=== PATIENT | male | born 1960 | race Caucasian/White ===

== ENCOUNTER → 2023-01-01 | Outpatient (CLI) | payer OTHER ==
--- NOTE | 2023-01-04 07:13 | CTL ---
EXAMINATION TYPE: CT Low Dose Lung DATE OF EXAM: 01/01/2023 7:18 PM CLINICAL INDICATION:Male, 62 years old with history of Z12.2,F17.210,Z87.891; Current every day smoke r, 1 pack a day x 47 years. , history of tobacco use. COMPARISON: None. TECHNIQUE: Multiple axial non-contrast scans were obtained from approximately the lung apices through the upper abdomen. Coronal and sagittal reformatted images were obtained. Low dose technique was uti lized. CT DLP: 76.3 mGycm, Automated exposure control for dose reduction was used. CT Contrast: Contrast used: None Oral contrast used: None FINDINGS: ======== Lack of intravenous contrast and low dose technique limits the evaluation of the vascular and soft ti ssue structures. LUNGS: No evidence of pulmonary fibrosis. No evidence of focal consolidation, pneumothorax or pleural effusion. Centrilobular emphysema changes are seen throughout the lungs. Posterior right Bochdalek f at-containing hernia. Nodules: RUL: None. RML: None. RLL: None. CICI: None. LLL: None. AIRWAY: Patent and unremarkable. HEART: Size within normal limits. Moderate to severe coronary artery atherosclerosis. MEDIASTINUM: No gross evidence of adenopathy. Small hiatal hernia. VASCULATURE: No aortic aneurysm. MUSCULOSKELETAL: Mild disc degeneration changes are present throughout the thoracolumbar spine. SOFT TISSUES/LYMPH NODES: Unremarkable. LOWER NECK: No significant findings. UPPER ABDOMEN: No significant findings. IMPRESSION: 1. No clinically significant pulmonary nodules. 2. Dusa-[id number] emphysema. 3. Small hiatal hernia. CT LUNG RAD AND CT CHEST RECOMMENDATION: Lung-Rad 1 Negative: Continue annual screening with LDCT in 12 months. S Modifier (other clinically significant findings): None Recommend smoking cessation (if current smoker), or continuation of smoking cessation (if prior smoke r). Annual screening for lung cancer with low-dose computed tomography is recommended in adults ages 55 to 77 years who have a 30 pack-year smoking history and currently smoke or have quit within the pa st 15 years. Screening should be discontinued once a person has not smoked for 15 years or develops a health problem that substantially limits life expectancy or the ability or willingness to have curat ronan lung surgery. Lung rads 2021 [email or web address]
== END | disposition home or self-care (01) ==
LOC: RADCTMAIN 18:49
PROVIDERS: ATTEND Family Medicine
DX: Z12.2 Encounter for screening for malignant neoplasm of respiratory organs (principal); F17.210 Nicotine dependence, cigarettes, uncomplicated; J43.2 Centrilobular emphysema; K44.9 Diaphragmatic hernia without obstruction or gangrene
CPT/HCPCS: 71271

== ENCOUNTER → 2024-02-11 | Outpatient (CLI) | payer OTHER ==
--- NOTE | 2024-02-11 08:23 | US ---
EXAMINATION TYPE: US abdomen complete DATE OF EXAM: 02/11/2024 COMPARISON: NONE CLINICAL INDICATION: Male, 63 years old with history of R79.89 ABN BLOOD CHEM F10.90 ALCOHOL USE; Ab normal lfts TECHNIQUE: Grayscale and color Doppler imaging of the abdomen was performed. FINDINGS: EXAM MEASUREMENTS: Liver Length: 14.1 cm Gallbladder Wall: .2 cm CBD: .5 cm, color Doppler imaging was utilized to isolate the common bile duct for measurement. Spleen: 5.5 cm Right Kidney: 9.2 x 4.7 x 4.9 cm Left Kidney: 9.7 x 5.4 x 4.5 cm SURGERY SPECIALIST NOTES: Pancreas: wnl Liver: wnl Gallbladder: No stones seen Evidence for sonographic Terry's sign: No CBD: wnl Spleen: wnl Right Kidney: No hydronephrosis or masses seen Left Kidney: No hydronephrosis or masses seen Upper IVC: wnl Abd Aorta: wnl The liver is homogenous. The intrahepatic portion of the IVC and proximal abdominal aorta are within normal limits. There is no evidence of cholelithiasis. Common bile duct is unremarkable. The visu alized portions of the pancreas are homogenous. The spleen is unremarkable. Kidneys are symmetric a nd free of hydronephrosis. No renal lesions are seen. IMPRESSION: No evidence for acute process. The liver is homogenous without mass, dilated duct or cyst. [facility], , 02/11/2024 8:20 AM
== END | disposition home or self-care (01) ==
LOC: RADUSWWP 07:30
PROVIDERS: ATTEND Family Medicine
DX: R79.89 Other specified abnormal findings of blood chemistry (principal); F10.90 Alcohol use, unspecified, uncomplicated
CPT/HCPCS: 76700

== ENCOUNTER 2024-02-16 12:24 | Emergency (ER) | payer OTHER ==
[2024-02-16 12:37] VITALS: RESP 18; TEMP 97.7
[2024-02-16] MEDS: SODIUM CHLORIDE 0.9% 1,000 ML IV ONE (13:00)
--- NOTE | 2024-02-16 13:08 | ED ---
General Adult HPI - General Chief complaint: Dizziness Stated complaint: dizzy/vertigo Time Seen by Provider: 02/16/24 12:30 Source: patient, RN notes reviewed, old records reviewed Mode of arrival: ambulatory Limitations: no limitations - History of Present Illness Initial comments: This is a 63-year-old male who presents to the emergency department complaining that he went shopping and when he got at the store he was a little bit dizzy he states he has been diagnosed with dizziness before he believes it was called vertigo but he is not sure. Patient states he is a drinker and in fact he had some scotch this morning. Patient denies any fall or trauma. Patient has a headache patient denies numbness or weakness. Patient Nuys chest pain diffic ulty breathing shortness of breath. Patient has any vomiting or diarrhea. Patient has abdominal pain. Patient states that he has no symptoms currently - Related Data Allergies Allergy/AdvReac Type Severity Reaction Status Date / Time No Known Allergies Allergy Verified 02/16/24 12:37 Review of Systems ROS Statement: Those systems with pertinent positive or pertinent negative responses have been documented in the HPI. ROS Other: All systems not noted in ROS Statement are negative. Past Medical History Past Medical History: COPD, Hypertension Past Surgical History: Hernia Repair, Prostate Surgery Past Psychological History: No Psychological Hx Reported Smoking Status: Current every day smoker Past Alcohol Use History: Daily, Heavy Past Drug Use History: None Reported General Exam - General Exam Comments Initial Comments: GENERAL: Patient is well-developed and well-nourished. Patient is nontoxic and well- hydrated and is in no acute distress. ENT: Neck is soft and supple. No significant lymphadenopathy is noted. Oropharynx is clear. Moist mucous membranes. Neck has full range of motion without eliciting any pain. EYES: The sclera were anicteric and conjunctiva were pink and moist. Extraocular movements were intact and pupils were equal round and reactive to light. Eyelids were unremarkable. PULMONARY: Unlabored respirations. Good breath sounds bilaterally. No audible rales rhonchi or wheezing was noted. CARDIOVASCULAR: There is a regular rate and rhythm without any murmurs gallops or rubs. ABDOMEN: Soft and nontender with normal bowel sounds. No palpable organomegaly was noted. There is no palpable pulsatile mass. SKIN: Skin is clear with no lesions or rashes and otherwise unremarkable. NEUROLOGIC: Patient is alert and oriented x3. Cranial nerves II through XII are grossly intact. Motor and sensory are also intact. Normal speech, volume and content. Symmetrical smile. Finger-nose testing is normal bilaterally MUSCULOSKELETAL: Normal extremities with adequate strength and full range of motion. LYMPHATICS: No significant lymphadenopathy is noted PSYCHIATRIC: Normal psychiatric evaluation. Limitations: no limitations Course Vital Signs 02/16/24 02/16/24 12:29 13:30 Temperature 97.7 F Pulse Rate 80 Pulse Rate [ 102 H Sitting] Pulse Rate [ 106 H Standing] Pulse Rate [ 89 Supine] Respiratory 18 Rate Blood Pressure 127/97 Blood Pressure 117/86 [Sitting] Blood Pressure 119/72 [Standing] Blood Pressure 140/88 [Supine] O2 Sat by Pulse 98 Oximetry Medical Decision Making - Medical Decision Making EKG is interpreted by myself. EKG shows sinus rhythm at 82 bpm [place] was under 55 QRS 89 QT interval is 405 QTc is 444. Patient's EKG shows no ST segment elevation or depression Was pt. sent in by a medical professional or institution (, PA, [employer]IC, urgent care, hospital, or [facility]...) When possible be specific @ -No Did you speak to anyone other than the patient for history (EMS, parent, family, police, friend...)? What history was obtained from this source @ -No Did you review nursing and triage notes (agree or disagree)? Why? @ -I reviewed and agree with nursing and triage notes Were old charts reviewed (outside hosp., previous admission, EMS record, old EKG, old radiological studies, urgent care reports/EKG's, [facility] records)? Report findings @ -No old charts were reviewed Differential Diagnosis? @ -Differential Dizziness: Benign paroxysmal positional Vertigo, Meniere's disease, otitis media, acoustic neuroma, vertebrobasilar insufficiency, cerebellar stroke, encephalitis, hypovolemic, arrhythmia, coronary artery syndrome, anemia, this is not meant to be an all-inclusive list EKG interpreted by me (3pts min.). @ -As above X-rays interpreted by me (1pt min.). @ -None done CT interpreted by me (1pt min.). @ -Patient CT of the brain shows no acute normality U/S interpreted by me (1pt. min.). @ -None done What testing was considered but not performed or refused? (CT, X-rays, U/S, labs)? Why? @ -None What meds were considered but not given or refused? Why? @ -None Did you discuss the management of the patient with other professionals (professionals i.e. , PA, B[employer]CH[employer]IC, lab, RT, psych nurse, health social work professor, power line installer, teacher, licensing officer, outpatient case manager)? Give summary @ -No Was smoking cessation discussed for >3mins.? @ -No Was critical care preformed (if so, how long)? @ -No Were there social determinants of health that impacted care today? How? (Homelessness, low income, unemployed, alcoholism, drug addiction, transportation, low edu. Level, literacy, decrease access to med. care, prison, rehab)? @ -No Was there de-escalation of care discussed even if they declined (Discuss DNR or withdrawal of care, Hospice)? DNR status @ -No What co-morbidities impacted this encounter? (DM, HTN, Smoking, COPD, CAD, Cancer, CVA, ARF, Chemo, Hep., AIDS, mental health diagnosis, sleep apnea, morbid obesity)? @ -None Was patient admitted / discharged? Hospital course, mention meds given and route, prescriptions, significant lab abnormalities, going to OR and other pertinent info. @ -I went back to reevaluate the patient after he had a liter and a half fluid he was feeling much better and wanted to be discharged. Patient did have a little alcohol on board but he was sober at discharge and he did not want to stay any longer because he had no symptoms and he had a ride home. Undiagnosed new problem with uncertain prognosis? @ -No Drug Therapy requiring intensive monitoring for toxicity (Heparin, Nitro, Insulin, Cardizem)? @ -No Were any procedures done? @ -No Diagnosis/symptom? @ -Dizziness Acute, or Chronic, or Acute on Chronic? @ -Acute Uncomplicated (without systemic symptoms) or Complicated (systemic symptoms)? @ -Uncomplicated Side effects of treatment? @ -No Exacerbation, Progression, or Severe Exacerbation? @ -No Poses a threat to life or bodily function? How? (Chest pain, [place], [place], pneumonia, PE, COPD, DKA, ARF, appy, cholecystitis, CVA, Diverticulitis, Homicidal, Suicidal, threat to staff... and all critical care pts) @ -No Diagnosis/symptom? @ -Alcohol intoxication Acute, or Chronic, or Acute on Chronic? @ -Acute Uncomplicated (without systemic symptoms) or Complicated (systemic symptoms)? @ -Uncomplicated Side effects of treatment? @ -None Exacerbation, Progression, or Severe Exacerbation] @ -No Poses a threat to life or bodily function? @ -No - Lab Data Result diagrams: 02/16/24 12:56 02/16/24 12:56 Lab Results 02/16/24 02/16/24 02/16/24 Range/Units 12:56 12:56 12:56 WBC 4.4 (3.8-10.6) k/uL RBC 3.51 L (4.30-5.90) m/uL Hgb 12.6 L (13.0-17.5) gm/dL Hct 37.8 L (39.0-53.0) % MCV 107.8 H (80.0-100.0) fL MCH 36.1 H (25.0-35.0) pg MCHC 33.4 (31.0-37.0) g/dL RDW 14.1 (11.5-15.5) % Plt Count 241 (150-450) k/uL MPV 7.7 Neutrophils % 51 % Lymphocytes % 32 % Monocytes % 11 % Eosinophils % 1 % Basophils % 1 % Neutrophils # 2.3 (1.3-7.7) k/uL Lymphocytes # 1.4 (1.0-4.8) k/uL Monocytes # 0.5 (0-1.0) k/uL Eosinophils # 0.1 (0-0.7) k/uL Basophils # 0.0 (0-0.2) k/uL Macrocytosis Moderate PT 9.8 L (10.0-12.5) sec INR 0.9 (<1.2) APTT 19.2 L (22.0-30.0) sec Sodium 126 L (137-145) mmol/L Potassium 3.8 (3.5-5.1) mmol/L Chloride 91 L (98-107) mmol/L Carbon Dioxide 24 (22-30) mmol/L Anion Gap 11 mmol/L BUN 12 (9-20) mg/dL Creatinine 1.03 (0.66-1.25) mg/dL Est GFR (CKD-EPI)AfAm 89 (>60 ml/min/1.73 sqM) Est GFR (CKD-EPI)NonAf 77 (>60 ml/min/1.73 sqM) Glucose 105 H (74-99) mg/dL Calcium 9.2 (8.4-10.2) mg/dL Magnesium 1.6 (1.6-2.3) mg/dL Total Bilirubin 0.6 (0.2-1.3) mg/dL AST 53 (17-59) U/L ALT 30 (4-49) U/L Alkaline Phosphatase 67 (38-126) U/L Troponin I (0.000-0.034) ng/mL Total Protein 6.9 (6.3-8.2) g/dL Albumin 4.4 (3.5-5.0) g/dL Serum Alcohol 88 mg/dL 02/16/24 Range/Units 12:56 WBC (3.8-10.6) k/uL RBC (4.30-5.90) m/uL Hgb (13.0-17.5) gm/dL Hct (39.0-53.0) % MCV (80.0-100.0) fL MCH (25.0-35.0) pg MCHC (31.0-37.0) g/dL RDW (11.5-15.5) % Plt Count (150-450) k/uL MPV Neutrophils % % Lymphocytes % % Monocytes % % Eosinophils % % Basophils % % Neutrophils # (1.3-7.7) k/uL Lymphocytes # (1.0-4.8) k/uL Monocytes # (0-1.0) k/uL Eosinophils # (0-0.7) k/uL Basophils # (0-0.2) k/uL Macrocytosis PT (10.0-12.5) sec INR (<1.2) APTT (22.0-30.0) sec Sodium (137-145) mmol/L Potassium (3.5-5.1) mmol/L Chloride (98-107) mmol/L Carbon Dioxide (22-30) mmol/L Anion Gap mmol/L BUN (9-20) mg/dL Creatinine (0.66-1.25) mg/dL Est GFR (CKD-EPI)AfAm (>60 ml/min/1.73 sqM) Est GFR (CKD-EPI)NonAf (>60 ml/min/1.73 sqM) Glucose (74-99) mg/dL Calcium (8.4-10.2) mg/dL Magnesium (1.6-2.3) mg/dL Total Bilirubin (0.2-1.3) mg/dL AST (17-59) U/L ALT (4-49) U/L Alkaline Phosphatase (38-126) U/L Troponin I <0.012 (0.000-0.034) ng/mL Total Protein (6.3-8.2) g/dL Albumin (3.5-5.0) g/dL Serum Alcohol mg/dL Disposition Clinical Impression: Dizziness, Orthostatic hypotension, Alcohol intoxication Disposition: HOME SELF-CARE Condition: Good Instructions (If sedation given, give patient instructions): Dizziness (ED), Hypotension (ED), Alcohol Intoxication (ED) Is patient prescribed a controlled substance at d/c from ED?: No Referrals: Paige Last MD [Primary Care Provider] - 1-2 days Time of Disposition: 14:14
--- NOTE | 2024-02-16 13:20 | CT ---
EXAMINATION TYPE: CT brain wo con CT DLP: 1096.4 mGycm, Automated exposure control for dose reduction was used. DATE OF EXAM: 02/16/2024 1:14 PM COMPARISON: None. CLINICAL INDICATION:Male, 63 years old with history of Dizziness, dizzy TECHNIQUE: Brain: Multiple axial CT images of the brain were obtained without IV contrast. . Coronal and sagitta l reformats reviewed. FINDINGS: Brain: Extra-axial spaces: No abnormal extra-axial fluid collections. Ventricular system: Within normal limits Cerebral parenchyma: No acute intraparenchymal hemorrhage or mass effect. The vincent-white junction is well differentiated. Scattered hypoattenuating areas are seen within the periventricular and subcort ical white matter. Partially empty sella morphology. Cerebellum: Unremarkable. Mass effect: No evidence of midline shift. Intracranial vasculature: Atherosclerotic calcifications of the intracranial vessels. Soft tissues: Normal. Calvarium/osseous structures: No depressed skull fracture. Paranasal sinuses and mastoid air cells: The mastoid air cells are clear. Minimal mucosal thickening in the inferior right maxillary sinus. Complete opacification of the left maxillary sinus. Moderate m ucosal thickening in the anterior left ethmoid sinus. Complete opacification of the left frontal sinu s. Remaining paranasal sinuses are clear. Visualized orbits: Orbital contents are intact. IMPRESSION: 1. No acute intracranial process. 2. Nonspecific white matter changes, likely secondary to chronic small vessel ischemic disease. 3. Paranasal sinus disease with complete opacification of the left frontal and maxillary sinuses and moderate mucosal thickening of the left anterior ethmoid sinus. [facility], , 02/16/2024 1:18 PM
[2024-02-16 13:21] LABS: Basophils % (A) 1 %; Eosinophils # (A) 0.1 k/uL (0-0.7); Eosinophils % (A) 1 %; HCT 37.8 % (39.0-53.0); HGB 12.6 gm/dL (13.0-17.5); Lymphocytes # (A) 1.4 k/uL (1.0-4.8); Lymphocytes % (A) 32 %; MCH 36.1 pg (25.0-35.0); MCHC 33.4 g/dL (31.0-37.0); MCV 107.8 fL (80.0-100.0); Macrocytosis Moderate; Mean Platelet Volume 7.7; Monocytes # (A) 0.5 k/uL (0-1.0); Monocytes % (A) 11 %; Neutrophils # (A) 2.3 k/uL (1.3-7.7); Neutrophils % (A) 51 %; Platelet Count 241 k/uL (150-450); RBC 3.51 m/uL (4.30-5.90); RDW 14.1 % (11.5-15.5); WBC 4.4 k/uL (3.8-10.6)
[2024-02-16 13:32] VITALS: BP 140/88; PULSE 89
[2024-02-16 13:35] LABS: ALT 30 U/L (4-49); AST 53 U/L (17-59); African American GFR (CKD) 89 (>60 ml/min/1.73 sqM); Albumin 4.4 g/dL (3.5-5.0); Alkaline Phosphatase 67 U/L (38-126); Anion Gap 11 mmol/L; Blood Urea Nitrogen 12 mg/dL (9-20); Calcium 9.2 mg/dL (8.4-10.2); Carbon Dioxide 24 mmol/L (22-30); Chloride 91 mmol/L (98-107); Glucose 105 mg/dL (74-99); Magnesium 1.6 mg/dL (1.6-2.3); Non-African American GFR(CKD) 77 (>60 ml/min/1.73 sqM); Potassium 3.8 mmol/L (3.5-5.1); Sodium 126 mmol/L (137-145); Total Bilirubin 0.6 mg/dL (0.2-1.3); Total Protein 6.9 g/dL (6.3-8.2)
--- NOTE | 2024-02-16 13:37 | XR ---
EXAMINATION TYPE: XR chest 2V DATE OF EXAM: 02/16/2024 1:14 PM COMPARISON: None. CLINICAL INDICATION: Male, 63 years old with history of Chest Pain, TECHNIQUE: XR chest 2V view(s) obtained. FINDINGS: The heart size is normal. The pulmonary vasculature is normal. The lungs are clear. Is hyperinflation flattening the diaphragms compatible COPD IMPRESSION: 1. No acute pulmonary process. 2 COPD [facility], , 02/16/2024 1:35 PM
[2024-02-16 13:43] LABS: INR 0.9 (<1.2); Prothrombin Time 9.8 sec (10.0-12.5)
[2024-02-16 13:52] LABS: Alcohol 88 mg/dL
[2024-02-16 13:54] LABS: Partial Thromboplastin Time 19.2 sec (22.0-30.0)
== END 2024-02-16 14:33 | disposition home or self-care (01) ==
LOC: EC 12:24
DX: F10.129 Alcohol abuse with intoxication, unspecified (principal); I95.1 Orthostatic hypotension; R42 Dizziness and giddiness; F17.200 Nicotine dependence, unspecified, uncomplicated
CPT/HCPCS: 36415; 70450; 71046; 80053; 80320; 83735; 84484; 85025; 85610; 85730; 93005; 96360; 99285

== ENCOUNTER 2024-05-30 12:33 | Day surgery (SDC) | payer OTHER ==
[~2024-05-30 12:33] MED LIST: LACTATED RINGERS 1,000 ML IV SCH; LIDOCAINE 1% (10MG/ML) FOR IV START INTRADERMA PRN
[2024-05-30] MEDS ORDERED: LACTATED RINGERS 1,000 ML IV SCH (12:46)
[2024-05-30 12:56] VITALS: TEMP 97.1
[2024-05-30] MEDS: IV FLUID CONTINUATION 1,000 ML IV ONE ×2 (13:05→13:41)
[2024-05-30] MEDS ORDERED: PROPOFOL 10 MG/ML 20 ML VIAL IV ONE (13:16)
[2024-05-30] MEDS ORDERED: LIDOCAINE 1% INJ 10MG/ML (20 ML MDV) ONE (13:16)
--- NOTE | 2024-05-30 13:38 | P.GSHP ---
History of Present Illness H&P Date: 05/30/24 Chief Complaint: Colon cancer screening 63-year-old male here for colonoscopy. Last colonoscopy he believes was 3 to 4 years ago. He thinks it was normal. Patient seems to be a poor historian. This colonoscopy of his was out of town. Today he is here for routine screening colonoscopy he states. No bowel complaints. No family history of colon cancer. Past Medical History Past Medical History: COPD, Hypertension Additional Past Medical History / Comment(s): gout History of Any Multi-Drug Resistant Organisms: None Reported Past Surgical History: Hernia Repair, Prostate Surgery Past Anesthesia/Blood Transfusion Reactions: No Reported Reaction Smoking Status: Current every day smoker Medications and Allergies Home Medications Medication Instructions Recorded Confirmed Type Albuterol Sulfate [Ventolin HFA] 2 puff INHALATION RT-QID PRN 04/18/24 05/30/24 History Budesonide/Formoterol Fumarate 2 puff INHALATION RT-BID PRN 04/18/24 05/30/24 History [Symbicort 160-4.5 Mcg Inhaler] allopurinoL 100 mg PO DAILY 04/18/24 05/30/24 History lisinopriL 40 mg PO DAILY 04/18/24 05/30/24 History Allergies Allergy/AdvReac Type Severity Reaction Status Date / Time No Known Allergies Allergy Verified 05/30/24 12:47 Surgical - Exam Vital Signs Temp Pulse Resp BP Pulse Ox 97.1 F L 100 16 142/88 98 05/30/24 12:54 05/30/24 12:54 05/30/24 12:54 05/30/24 12:54 05/30/24 12:54 Physical exam: General: Well-developed, well-nourished HEENT: Normocephalic, sclerae nonicteric Abdomen: Nontender, nondistended Extremities: No edema Neuro: Alert and oriented Assessment and Plan (1) Colon cancer screening Narrative/Plan: Will proceed with colonoscopy at this time. Male Current Visit: Yes Status: Acute Code(s): Z12.11 - ENCOUNTER FOR SCREENING FOR MALIGNANT NEOPLASM OF COLON SNOMED Code(s): 482201436
--- NOTE | 2024-05-30 13:39 | P.PCN ---
Date of Procedure: 05/30/24 Procedure(s) Performed: PREOPERATIVE DIAGNOSIS: Colon cancer screening POSTOPERATIVE DIAGNOSIS: Diverticulosis, small rectal polyp PROCEDURE: Colonoscopy with snare polypectomy ANESTHESIA: MAC SURGEON: Fred Man M.D. SPECIMENS: Polyp ENDOSCOPIC PROCEDURE: The patient was placed on the endoscopy table in the left decubitus position. The Olympus colonoscope was inserted into the anus and passed under direct visualization to the base of the cecum. The appendiceal orifice was visualized. From that point the scope was slowly withdrawn inspecting all surfaces carefully. There were no neoplastic inflammatory or polypoid lesions throughout the cecum, ascending, transverse, descending, and sigmoid colon. In the distal rectum there was noted to be a small polyp. This could have represented a small hypertrophied anal papilla but seem to be a few centimeters from the anal verge. This was removed using the snare with cautery technique. The remainder of the rectum was normal. The patient had mild left- sided diverticulosis. Digital rectal examination was normal. The patient was taken to the recovery room in stable condition per anesthesia guidelines. RECOMMENDATIONS: Resume diet. Await biopsy results. Will contact patient with timing for colonoscopy
[2024-05-30 14:03] VITALS: BP 142/73; PULSE 91; RESP 17
== END 2024-05-30 14:13 | disposition home or self-care (01) ==
LOC: ORWHC2ENDO 12:33
PROVIDERS: ATTEND Surgery
DX: Z12.11 Encounter for screening for malignant neoplasm of colon (principal); K62.1 Rectal polyp; K57.30 Diverticulosis of large intestine without perforation or abscess without bleeding; I10 Essential (primary) hypertension; J44.9 Chronic obstructive pulmonary disease, unspecified; M10.9 Gout, unspecified; F17.210 Nicotine dependence, cigarettes, uncomplicated; Z79.899 Other long term (current) drug therapy; Z98.890 Other specified postprocedural states
CPT/HCPCS: 88305; 45385; J2003; J2704

== ENCOUNTER 2024-06-16 17:15 | Emergency (ER) | payer OTHER ==
--- NOTE | 2024-06-16 17:32 | ED ---
General Adult HPI - General Source: patient, RN notes reviewed Mode of arrival: ambulatory Limitations: no limitations <Dorie Molina - Last Filed: 06/16/24 19:48> <Althea Harden - Last Filed: 06/17/24 14:03> - General Chief complaint: Allergic Reaction Stated complaint: Facial swelling/poss allergic rxn Time Seen by Provider: 06/16/24 17:25 - History of Present Illness Initial comments: This is a 64-year male with history of hypertension, on lisinopril, and COPD using Symbicort presenting to emergency department for facial swelling/lip swelling and difficulty breathing. Patient states that he used his Symbicort inhaler today (that he uses irregularly) and around 12:00 he began to experience upper lip swelling and difficulty in breathing. Patient states that he has been taking his lisinopril over the past few years. He denies use of new medications. He states that something similar happened to him about 6 months ago however he did not require hospitalization. (Dorie Molina) - Related Data Home Medications Medication Instructions Recorded Confirmed Albuterol Sulfate [Ventolin HFA] 2 puff INHALATION RT-QID PRN 04/18/24 05/30/24 Budesonide/Formoterol Fumarate 2 puff INHALATION RT-BID PRN 04/18/24 05/30/24 [Symbicort 160-4.5 Mcg Inhaler] allopurinoL 100 mg PO DAILY 04/18/24 05/30/24 lisinopriL 40 mg PO DAILY 04/18/24 05/30/24 Allergies Allergy/AdvReac Type Severity Reaction Status Date / Time No Known Allergies Allergy Verified 06/16/24 17:24 Review of Systems ROS Other: All systems not noted in ROS Statement are negative. <Dorie Molina - Last Filed: 06/16/24 19:48> ROS Other: All systems not noted in ROS Statement are negative. <Althea Harden - Last Filed: 06/17/24 14:03> ROS Statement: Those systems with pertinent positive or pertinent negative responses have been documented in the HPI. Past Medical History Past Medical History: COPD, Hypertension Additional Past Medical History / Comment(s): gout History of Any Multi-Drug Resistant Organisms: None Reported Past Surgical History: Hernia Repair, Prostate Surgery Past Anesthesia/Blood Transfusion Reactions: No Reported Reaction Past Psychological History: No Psychological Hx Reported Smoking Status: Current every day smoker <JesseDorie - Last Filed: 06/16/24 19:48> General Exam Limitations: no limitations General appearance: alert, in no apparent distress Expanded Mouth exam: Present: tongue normal, other (superior lip angioedema). Absent: normal external inspection, drooling, trismus, tongue elevation Throat exam: other (posterior oropharynx and uvular edema) Neck exam: Present: normal inspection. Absent: tenderness, meningismus, lymphadenopathy Respiratory exam: Present: normal lung sounds bilaterally. Absent: respiratory distress, wheezes, rales, rhonchi, stridor Cardiovascular Exam: Present: regular rate, normal rhythm, normal heart sounds. Absent: systolic murmur, diastolic murmur, rubs, gallop, clicks GI/Abdominal exam: Present: soft, normal bowel sounds. Absent: distended, tenderness, guarding, rebound, rigid Extremities exam: Present: normal inspection, full ROM, normal capillary refill. Absent: tenderness, pedal edema, joint swelling, calf tenderness Back exam: Present: normal inspection <Dorie Molina - Last Filed: 06/16/24 19:48> Course Vital Signs 06/16/24 06/16/24 06/16/24 17:20 17:40 17:52 Temperature 98.5 F Pulse Rate 108 H 123 H 112 H Respiratory 17 22 22 Rate Blood Pressure 118/81 131/87 140/88 O2 Sat by Pulse 94 L 97 97 Oximetry 06/16/24 06/16/24 06/16/24 18:23 18:54 19:24 Temperature Pulse Rate 109 H 101 H 74 Respiratory 18 18 18 Rate Blood Pressure 132/84 156/92 157/54 O2 Sat by Pulse 94 L 98 94 L Oximetry 06/16/24 20:38 Temperature 99.0 F Pulse Rate 102 H Respiratory 18 Rate Blood Pressure 148/87 O2 Sat by Pulse 95 Oximetry Medical Decision Making <Dorie Molina - Last Filed: 06/16/24 19:48> <Althea Harden - Last Filed: 06/17/24 14:03> - Medical Decision Making Was pt. sent in by a medical professional or institution (, PA, PAINT FORMULATOR, urgent care, hospital, or senior care...) When possible be specific @ -No Did you speak to anyone other than the patient for history (EMS, parent, family, police, friend...)? What history was obtained from this source @ -No Did you review nursing and triage notes (agree or disagree)? Why? @ -I reviewed and agree with nursing and triage notes Were old charts reviewed (outside hosp., previous admission, EMS record, old EKG, old radiological studies, urgent care reports/EKG's, senior care records)? Report findings @ -No old charts were reviewed Differential Diagnosis (chest pain, altered mental status, abdominal pain women, abdominal pain men, vaginal bleeding, weakness, fever, dyspnea, syncope, headache, dizziness, GI bleed, back pain, seizure, CVA, palpatations, mental health, musculoskeletal)? @ -Anaphylaxis, angioedema, bradykinin induced angioedema, this this is not all inclusive EKG interpreted by me (3pts min.). @ -none X-rays interpreted by me (1pt min.). @ -None done CT interpreted by me (1pt min.). @ -None done U/S interpreted by me (1pt. min.). @ -None done What testing was considered but not performed or refused? (CT, X-rays, U/S, labs)? Why? @ -None What meds were considered but not given or refused? Why? @ -None Did you discuss the management of the patient with other professionals (professionals i.e. , PA, PAINT FORMULATOR, lab, RT, psych nurse, forensic social worker, art handler, teacher, branch officer, watch caser)? Give summary @ -My attending spoke to ENT specialist, Dr. Baez, who is recommended transfer to facility with ENT in house if changes were to occur. Additionally, ENT is not available director television news currently. Was smoking cessation discussed for >3mins.? @ -No Was critical care preformed (if so, how long)? @ -No Were there social determinants of health that impacted care today? How? (Homelessness, low income, unemployed, alcoholism, drug addiction, transportation, low edu. Level, literacy, decrease access to med. care, [facility], rehab)? @ -No Was there de-escalation of care discussed even if they declined (Discuss DNR or withdrawal of care, Hospice)? DNR status @ -No What co-morbidities impacted this encounter? (DM, HTN, Smoking, COPD, CAD, Cancer, CVA, ARF, Chemo, Hep., AIDS, mental health diagnosis, sleep apnea, morbid obesity)? @ -None Was patient admitted / discharged? Hospital course, mention meds given and route, prescriptions, significant lab abnormalities, going to OR and other pertinent info. @ -Transferred. 64-year-old male presenting with difficulty breathing and lip swelling. On evaluation patient is in no signs of respiratory distress however there is notable severe upper lip angioedema with posterior oropharynx and uvular edema. Patient's vitals are stable and he is protecting his airway. Pulmonary examination notable stridorous breathing. patient was personally evaluated by my attending, Dr. Harden, who recommends the patient receive an allergic cocktail including Solu-Medrol, Benadryl, Pepcid in addition to IM dose of epinephrine. Additionally, my attending spoke to the pulmonary student worker, Dr. Soto, was recommended that the patient received dose of Decadron and continue to be observed. Additionally, patient is started on IV piggyback of TXA with concern for bradykinin induced angioedema. It is recommended that the patient be transferred to facility with ENT specialist on-call as ENT is unavailable at her facility for continued evaluation of likely bradykinin induced angioedema. Patient has been accepted at [facility] as an auto accept transfer by Dr. Rodriguez Undiagnosed new problem with uncertain prognosis? @ -No Drug Therapy requiring intensive monitoring for toxicity (Heparin, Nitro, Insulin, Cardizem)? @ -No Were any procedures done? @ -No Diagnosis/symptom? @ -Angioedema Acute, or Chronic, or Acute on Chronic? @ -Acute Uncomplicated (without systemic symptoms) or Complicated (systemic symptoms)? @ -Complicated Side effects of treatment? @ -No Exacerbation, Progression, or Severe Exacerbation? @ -No Poses a threat to life or bodily function? How? (Chest pain, [place], [place], pneumonia, PE, COPD, DKA, ARF, appy, cholecystitis, CVA, Diverticulitis, Homicidal, Suicidal, threat to staff... and all critical care pts) @ -yes, potential for impending airway compromise and (Dorie Molina) As above case was discussed with myself and patient was evaluated by myself on arrival alongside Dorie DURHAM. Pt with upper lip swelling and uvular swelling, no tongue swelling, no stridor, protecting airway, tolerating secretions, no acute distress. Of top concern was for ACEi induced angioedema vs bradykinin induced angioedema however due to degree of swelling, pt as also treated with medications for allergic reaction/anaphylaxis in order to mitigate swelling as much as possible. Additionally received one gram TXA. Please see above regarding recs from Dr. Soto, pul/crit, as patient was considered for admission to ICU here to monitor closely for worsening swelling of his airway. Additionally, though we did not have ENT formally director television news, we were able to contact local ENT Dr. Almonte, who kindly recommended an additional dose of 0.5 mg IM epi and suggested transfer to facility with ENT on-call and available, should patient ultimately need a surgical airway. For this reason, pt was transferred to [facility]. I did update pt to these recommendations and plans to which he was agreeable. Additionally, we discussed that he is to stop and avoid any further use of his lisinopril going forward. Of note, patient was frequently re- evaluated by myself throughout ED stay, he did not display any stridor throughout stay and evaluation, symptoms and exam remained stable, if not slightly improved, prior to transport. Critical Care time: 35 minutes, spent evaluating patient, frequent re- evaluations, ordering interventions, discussion with consultants (Althea Harden) Disposition - Out of Hospital Transfer - Req. Specs Out of Hospital Transfer - Requested Specifics: Other Emergency Center ([facility]) <Dorie Molina - Last Filed: 06/16/24 19:48> <Althea Harden - Last Filed: 06/17/24 14:03> Clinical Impression: Angioedema Disposition: OTHER INSTITUTION NOT DEFINED Condition: Serious Referrals: Paige Last MD [Primary Care Provider] - 1-2 days
[2024-06-16] MEDS: diphenhydrAMINE 50 MG/ML 1 ML VIAL IVP STA (17:36)
[2024-06-16] MEDS: methylPREDNISolone SOD SUCCI 125 MG/2 ML VIAL IV STA (17:37)
[2024-06-16] MEDS: FAMOTIDINE 20 MG/2 ML VIAL IV STA (17:38)
[2024-06-16] MEDS: EPINEPHrine - Anaphylaxis Kit (1 mg/mL) IM STA ×2 (17:39→18:51)
[2024-06-16 18:23] VITALS: RESP 18
[2024-06-16] MEDS: SODIUM CHLORIDE 0.9% 1,000 ML IV STA (18:41)
[2024-06-16] MEDS: DEXAMETHASONE SOD PHOSPHATE 10 MG/ML 1 ML VIAL IVP STA (18:41)
[2024-06-16] MEDS: TRANEXAMIC 1,000 MG/100ML-NACL 1,000 MG in SALINE 1 100ML.BAG IVPB ONE (18:48)
[2024-06-16 20:40] VITALS: BP 148/87; PULSE 102; TEMP 99
== END 2024-06-16 20:45 | disposition other institution (70) ==
LOC: EC 17:15
DX: T78.3XXA Angioneurotic edema, initial encounter (principal); I10 Essential (primary) hypertension; J44.9 Chronic obstructive pulmonary disease, unspecified; F17.200 Nicotine dependence, unspecified, uncomplicated; X58.XXXA Exposure to other specified factors, initial encounter
CPT/HCPCS: 99284; 96365; 96366; 96375; 96372; J0171; J1200; J1100; J3490; J2919